=== PATIENT | male | born 2000 | race Caucasian/White ===

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

== ENCOUNTER 2025-01-26 18:24 | Emergency (ER) | payer OTHER, SELFPAY ==
--- NOTE | ~2025-01-26 | XR_ITS ---
HISTORY: FALL COMPARISON: None TECHNIQUE: 3 views of the left elbow were performed FINDINGS: No acute fracture is identified. No elevation of the anterior or posterior fat pads are identified to suggest a supracondylar fracture . Overlying soft tissues are unremarkable. Bone mineralization is age-appropriate. IMPRESSION: No evidence of acute traumatic injury within the left elbow, as detailed above. Reviewed, dictated and finalized at location A. S SUPERINTENDENT IMPRESSION: No evidence of acute traumatic injury within the left elbow, as de tailed above.
--- NOTE | ~2025-01-26 | XR_ITS ---
HISTORY: fall COMPARISON: None TECHNIQUE: 3 views of the left wrist were performed. FINDINGS: No acute fracture is identified. The carpal arcs are intact. Mild radiocarpal joint space narrowing with sclerosis of the distal radius is present. The remaining visualized joint spaces are otherwise preserved. Trace negative ulnar variance is detected. Bone mineralization is unremarkable. No significant soft tissue swelling is noted. No radiopaque foreign body is identified. 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
--- NOTE | ~2025-01-26 | XR_ITS ---
HISTORY: fall COMPARISON: None TECHNIQUE: 3 views of the left ankle were performed FINDINGS: No acute fracture or dislocation. No significant soft tissue swelling. The ankle mortise is preserved. Bone mineralization is age-appropriate. IMPRESSION: No acute abnormality is identified within the left ankle, as detailed above. Reviewed, dictated and finalized at location A. R HEEL PIECE SHAPER IMPRESSION: No acute abnormality is identified within the left ankle, as jose miguel led above.
--- NOTE | ~2025-01-26 | XR_ITS ---
HISTORY: fall COMPARISON: None TECHNIQUE: 4 views of the right knee were performed FINDINGS: No acute or subacute fracture, erosion, lytic or sclerotic lesion. No medial or lateral tibiofemoral joint space narrowing is identified. No suprapatellar joint effusion is identified. The infrapatellar joint space is clear. IMPRESSION: No evidence of acute traumatic injury within the right knee Reviewed, dictated and finalized at location A. IBLE FURNACE TENDER
--- NOTE | ~2025-01-26 | CT_ITS ---
History: Fall PROCEDURE: CT head without contrast. COMPARISON: None 05/02/2021 TECHNIQUE: Axial imaging of the head performed from the skull base to the vertex without IV contrast. Sagittal a nd coronal reformations obtained. DLP: 600 mGy-cm FINDINGS: The ventricles are normal in size, shape and position. There is no mass, mass effect or midline shift. There is no abnormal extra-axial fluid collection or intracranial hemorrhage. Visualized paranasal sinuses are clear. The mastoid air cells are well aerated. No acute displaced fractures within the overlying cranium. Impression: No acute intracranial hemorrhage or suspicious mass effect. Reviewed, dictated and finalized at location A. ING INSTALLER Impression: No acute intracranial hemorrhage or suspicious mass effect.
--- NOTE | ~2025-01-26 | XR_ITS ---
HISTORY: fall COMPARISON: None TECHNIQUE: 2 views of the bilateral hips along with an AP view of the pelvis FINDINGS: No acute fracture or dislocation is identified. The joint spaces are preserved. Normal mineralization. IMPRESSION: No acute fracture or dislocation. Reviewed, dictated and finalized at location A. GER TECHNICAL SALES
--- NOTE | ~2025-01-26 | CT_ITS ---
Clinical indication:Fall COMPARISON:11/05/2020 TECHNIQUE: Multiple contiguous axial images of the chest were performed without the administration of intravenous contrast. FINDINGS: LUNG:The lungs are clear. MEDIASTINUM:Limited evaluation secondary to the lack of intravenous contrast HEART:The heart is of normal size, without pericardial effusion. SOFT TISSUES OF THE CHEST: Unremarkable. BONES OF THE CHEST: No acute compression fracture within the thoracic spine. No acute rib fracture. The sternum is intact. No fracture detected within the bilateral scapula VISUALIZED PORTION OF THE UPPER ABDOMEN: The gallbladder is minimally distended, and otherwise unrema rkable. Stones within the visualized portions of the bilateral kidneys. IMPRESSION: Unremarkable CT examination of the chest, as detailed above. No evidence of acute traumatic injury Reviewed, dictated and finalized at location A. OR SPECIALIST
[2025-01-26 18:26] VITALS: BP 189/94; PULSE 101; RESP 16; TEMP 36.6; O2SAT 100
--- OUTSIDE RECORDS SUMMARY | 2025-01-26 18:43 | XMS_ITS | Clinical Summary ---
Author Organization [facility] [employer] [facility] Address [address] [place] [address] Care Team Providers Care Pit Steward Name Role Phone Che Nolan MD Primary Care Provider [phone] Source Comments [facility],non-owned Affiliates and Associated Physician Practices is amultiple site organization consisting of ambulatory clinics and hospital sitesin [place], [place], [place] and [place]. This disclosure is being madepursuant to the Care Everywhere program and may not contain all information available regarding this patient. Last updated 18.[employer] Allergies No known active allergies Medications * Be aware that medications may not be up to date on this document. Alwaysverify current medications with the patient. Medication Sig Dispensed Refills Start Date End Date Status hydrOXYzine hcl (ATARAX) 25 MG tablet Take 1 tablet by mouth 4 times daily as needed for Itching 20 tablet 02/02/2020 Active Additional Information Patient not taking.Reported on 06/22/2021 OXcarbazepine (TRILEPTAL) 600 MG tablet Take 1 tablet by mouth once daily 30 tablet 3 07/08/2020 Active cloNIDine (CATAPRES) 0.2 MG tablet Take 1 tablet by mouth at bedtime 30 tablet 3 07/08/2020 Active ofloxacin (FLOXIN) 0.3 % otic solution Instill 5 (five) drops into left ear 2 times daily 5 mL 05/01/2021 Active Additional Information Patient not taking.Reported on 06/22/2021 sertraline (ZOLOFT) 100 MG tablet Take 1 tablet by mouth once daily 04/03/2021 Active traZODone (DESYREL) 100 MG tablet Take 150 mg by mouth nightly as needed 04/03/2021 Active ondansetron, disintegrating, (ZOFRAN ODT) 4 MG tablet Take 4 mg by mouth as needed 08/11/2021 Active amoxicillin (AMOXIL) 875 MG tablet Take 875 mg by mouth every 12 hours FOR 10 DAYS 08/11/2021 Active Active Problems Problem Noted Date Diagnosed Date KP (keratosis pilaris) 09/02/2015 BMI (body mass index), pediatric, 95-99% for age 0605/05/2013 Resolved Problems Problem Noted Date Diagnosed Date Resolved Date Elevated blood pressure reading 05/05/2013 04/25/2016 Immunizations Name Administration Dates Next Due DTaP VACCINE IM (6wk-6yrs) 03/11/2007,,2002,07/09,2002 HEP A PEDS 2 DOSE 03/11/2007,05/30/2006 HEP B VACCINE, PED/ADOL 2002,2002, HIB BOOSTER 09/10/2003, 2,2002,05/08 Human Papilloma Virus Abel valent Vaccine 04/24/2016,04/21/2015,05/05/2013 INFLUENZA VACCINE, QUADR. (F LUZONE; FLULAVAL; FLUARIX; AFLURIA QUADRIVALENT; 6MO+), 0.5 ML (IIV4) 09/08/2019,10/02/2018,09/10/2016 Influenza Nasal 08/18/2012 MARLON VACCINE QUAD LAIV4 PF NASAL 08/18/2015,2013 MENINGOCOCCAL CONJUGATE (MCV4P) 07/02/2019,05/05 MMR 03/11/2007,03/11/2003 PNEUMOCOCCAL CONJ, PEDS 03/11/2003,09/08,2002,05/16 POLIO IPV 03/11/2007, 3,2002,05/08 PPD 03/11/2007,03/11/2003 TDAP (7yrs+) 05/05/2013 VARICELLA 03/11/2007,06/10/2003 Social History Tobacco Use Types Packs/Day Years Used Date Smoking Tobacco: Never Smokeless Tobacco: Never Alcohol Use Standard Drinks/Week Comments Not Asked 0 (1 standard drink = 0.6 oz pur e alcohol) PHQ-2 Answer Date Recorded PHQ2 TOTAL SCORE 4 05/04/2021 Sex and Gender Information Value Date Recorded Sex Assigned at Not on file Gender Identity Not on file Sexual Orientation Not on file Last Filed Vital Signs Vital Sign Reading Time Taken Comments Blood Pressure 126/62 04/24/2016 4:42 PM CDT Pulse 70 09/02/2015 4:08 PM CDT Temperature 38.3 C (101 F) 08/15/2021 11:48 AM CDT Respiratory Rate - - Oxygen Saturation - - Inhaled Oxygen Concentration - - Weight 122 kg (269 lb) 06/22/2021 3:35 PM CDT Height 170.2 cm (5' 7 ) 07/02/2019 3:29 PM CDT Body Mass Index - - Plan of Treatment Health Maintenance Due Date Last Done Comments MENINGOCOCCAL (Group B) VACC INE (1 of 2 - Standard) 2018 HEPATITIS C SCREENING 03/03/2020 DTAP/TDAP/TD VACCINES (7 - T d or Tdap) 05/05/2023 05/05/2013, 03/11/2007, 09/10/2003, Additional history exists COVID-19 VACCINE (1 - 2023-2 5 season) 2024 INFLUENZA VACCINE (#1) 2024 9, 10/02/2018, 09/10/2016, Additional history exists DEPRESSION SCREENING 11/25/2024 ZOSTER VACCINE (1 of 2) 2052 HEPATITIS B VACCINE Completed 2002, 2002, 2002 PNEUMOCOCCAL VACCINE Completed 03/11/2003, 2002, 2002, Additional history exists HIB VACCINE Completed 09/10/2003, 08/25, 2002, Additional history exists HPV VACCINE Completed 04/24/2016, 03/26, 05/05/2013 MENINGOCOCCAL VACCINE Completed 07/02/2019, 013 HIV SCREENING Completed 04/05/2021 Goals Goal Patient Goal Type Associated Problems Recent Progress Patient-Stated? Author Exercise 3X per week (30 min per time) Exercise On track( 11:19 AM CDT) No Che Nolan MD Note: Caring for Your Overweight Child Get Moving: It is recommended that children and teens get physical activity for at least 1 hour per day on most (or better yet, all) days of the week. That may sound like a lot, especially if your child is not getting any physical activity now. But physical activity means more than exercise. It can mean playing games in the backyard, or washing the car. It can mean picking up leaves, or walking the dog. Add the healthy habit of physical activity to your family s schedule. When children take off weight through dieting alone, 80 percent of the loss is from fatty tissue and 20 percent is from muscle. Adding weight-resistance training to an exercise routine preserves the muscle tissue. Virtually every ounce dropped comes from fat. Once an adolescent meets his goal, regular exercise is essential for maintaining the desired weight. Where can I go for more information? [place] [employer] ( ) www.aap.org HealthyChildren.org www.healthychildren.org U.S. Department of Health and Human Services www.hhs.gov Website and free downloadable sharon for smartphones: http://www.Beyond Oblivion/ Use safety retraint in car Lifestyle On track( 11:19 AM CDT) No Jasmina Massey RN Procedures Procedure Name Priority Date/Time Associated Diagnosis Comments HIV-1 HIV-2 ANTIBODY + HIV P24 AG PANEL Routine 04/05/2021 9:59 AM CDT Screen for STD (sexually transmitted disease) from Last 3 Months or Most Recently Relevant to Health Maintenance Results * HIV-1 HIV-2 ANTIBODY + HIV P24 AG PANEL (04/05/2021 9:59 AM CDT) Pathologist [facility] HIV Screen 4th Generation w Reflex NON-REACT PIA NON-REACT PIA [facility] Comment: HIV-1 antigen and HIV-1/HIV-2 antibodies were not detected. There is no laboratory evidence of HIV infection. PLEASE NOTE: This information has been disclosed to you from records whose confidentiality may be protected by state law. If your state requires such protection, then the state law prohibits you from making any further disclosure of the information without the specific written consent of the person to whom it pertains, or as otherwise permitted by law. A general authorization for the release of medical or other information is NOT sufficient for this purpose. For additional information please refer to http://education.Realitycheck/faq/FBV401 (This link is being provided for informational/ educational purposes only.) The performance of this assay has not been clinically validated in patients less than 2 years old. Test Performed at: [facility] [id number] [place] [address] SENTHIL SALDIVAR DO,MPH Blood BLOOD SPECIMEN / Unknown 04/05/2021 9:59 AM CDT 04/05/2021 10:01 AM CDT Che Nolan MD LAB - CHEMISTRY [facility] Organization Address City/State/ZIP Co ks Phone Number [facility] [address] [place] [address] from Last 3 Months or Most Recently Relevant to Health Maintenance Care Teams Pit Steward Relationship Specialty Start Date End Date Che Nolan MD PCP - General Pediatrics 10/25/11
--- OUTSIDE RECORDS SUMMARY | 2025-01-26 18:43 | XMS_ITS | Referral Summary ---
Author Organization [facility] [employer] Address [address] [place] [address] Care Team Providers Care Dry Box Operator Name Role Phone Che Nolan MD Primary Care Provider [phone] Source Comments [facility] [employer],non-owned Affiliates and Associated Physician Practices is amultiple site organization consisting of ambulatory clinics and hospital sitesin [place], [place], [place] and [place]. This disclosure is being madepursuant to the Care Everywhere program and may not contain all information available regarding this patient. Last updated 18.[employer] Allergies No known active allergies Medications * [...] Mass Index - - Plan of Treatment Not on file Goals Goal Patient Goal Type Associated Problems Recent Progress Patient-Stated? Author Exercise 3X per week (30 min per time) Exercise On track( 021 11:19 AM CDT) No Che Nolan MD [...] Where can I go for more information? [place] [employer] ( ) www.aap.org HealthyChildren.org www.healthychildren.org U.S. Department of Health and Human Services www.hhs.gov Website and free downloadable sharon for smartphones: http://www.Vestor/ Use safety retraint in car Lifestyle On track( 021 11:19 AM CDT) Jasmina Montoya RN Procedures Procedure Name Priority Date/Time Associated Diagnosis Comments HIV-1 HIV-2 ANTIBODY + HIV P24 AG PANEL Routine 04/05/2021 9:59 AM CDT Screen for STD (sexually transmitted disease) from Last 3 Months or Most Recently Relevant to Health Maintenance Results * HIV-1 HIV-2 ANTIBODY + HIV P24 AG PANEL (04/05/2021 9:59 AM CDT) HIV Screen 4th Generation w Reflex NON-REACT PIA NON-REACT PIA [facility] Comment: HIV-1 antigen and HIV-1/HIV-2 antibodies were [...] purpose. For additional information please refer to http://education.OGPlanet.Advanced Telemetry/faq/NFF683 (This link is being provided for informational/ educational purposes only.) The performance of this assay has not been clinically validated in patients less than 2 years old. Test Performed at: [facility] [id number] [place] [address] SENTHIL SALDIVAR DO,MPH Blood BLOOD SPECIMEN / Unknown 04/05/2021 9:59 AM CDT 04/05/2021 10:01 AM CDT Che Nolan MD LAB - CHEMISTRY [facility] [address] [place] [address] from Last 3 Months or Most Recently Relevant to Health Maintenance Care Teams Dry Box Operator Relationship Specialty Start Date End Date Che Nolan MD PCP - General Pediatrics 10/25/11
--- OUTSIDE RECORDS SUMMARY | 2025-01-26 18:43 | XMS_ITS | Data Portability ---
Author Organization [place] [facility], Main Office Address [address] [place] [address] Assessment Encounter Date Assessment Date Assessment LastModified by Organization Details LastModified Time 09/14/2024 09/14/2024 04/01/2024: see case Lipids/VIT D [email or web address] Not available 09/13/2024 12:59:40 Plan of Treatment Reminders Order Date Submit Date Provider Last Modified By Organization Details Last Modified Time Details Appointments None recorded. Lab CBC w/ auto diff 2023 [facility], [address], [address], 11:35:42 lipid panel, serum 2023 [facility], [address], [address], 11:35:43 CMP, serum or plasma 2023 [facility], [address], [address], 11:35:42 TSH, serum or plasma 2023 [facility], [address], [address], 11:35:41 vitamin D, 25-hydroxy, total, serum [email or web address] [place] [address] (Lab), [address] [place], [address], 4 11:35:46 CMP, serum or plasma 2023 024 [email or web address] [facility], [address] , [place], [address], 12:52:10 CBC w/ auto diff 2023 024 [email or web address] 6 [facility], [address] [place] [address], [address], 12:52:10 TSH, serum or plasma 2023 024 [email or web address] 6 [facility], [address], [address], 12:52:10 lipid panel, serum 2023 024 [email or web address] 6 [facility], [address], [address], 12:52:11 vitamin D, 25-hydroxy, total, serum 2023 024 [facility] (Lab), [address] [place], [address], 4 13:01:37 CMP, serum or plasma 2022 023 [email or web address] 6 [facility], [address], [address], 16:54:00 CBC w/ auto diff 2022 023 [email or web address] 6 [facility], [address] [facility] [place], [address], 4 16:54:01 TSH, serum or plasma 2022 023 [email or web address] 6 [facility], [address], [address], 4 16:54:01 lipid panel, serum 2022 023 [email or web address] 6 [facility], [address] [facility] [address], [address], 4 16:54:01 vitamin D, 25-hydroxy, total, serum 2022 023 [email or web address] 6 [facility] ([facility]), [address] [facility], [place], [address], 4 16:54:00 Referral cloth weigher referral - Please call patient to schedule. 2023 024 [email or web address] 6 Brock Samayoa DPM, [address] [facility], [address], [place], [address], 5 09:28:[address] referral - Please call patient to schedule. 2023 024 [email or web address] Luz Mckeon [facility], [address] [facility], [address], [place], [address], 4 12:58:42 EGD referral 2023 024 [email or web address] 6 Kyara Hendrickson MD, [address] [facility], [address], [place], [address], 5 09:27:36 cloth weigher referral 2023 024 [email or web address] 6 Brock Samayoa DPM, [address], [address], [place], [address], 4 12:53:[address] referral 2023 024 [email or web address] 6 Jovanni Raoms MD, [address] [place], [address], 4 09:21:25 EGD referral 2023 024 [email or web address] Anna Hendrickson MD, [address] [facility], [facility] [address], [place], [address], 4 12:53:01 cloth weigher referral 2022 023 [email or web address] 6 Brock Samayoa DPM, [address] [facility], [address], [place], [address], 4 09:21:[address] referral 2022 023 [email or web address] Anna Raoms MD, [address] [place], [address], 4 09:35:51 EGD referral 2022 023 [email or web address] Anna Hendrickson MD, [address] [facility], [facility] [address], [place], [address], 4 09:21:30 Procedures None recorded. Surgeries None recorded. Imaging MRI, brain, w/o contrast - Please call patient to schedule. 2023 024 [facility], [address] Lucia Garcia, [address], [place], [address], 4 14:33:34 MRI, brain, w/o contrast 2023 024 [email or web address] 6 [facility], [address]22 [address] Garcia, [address], [place], [address], 4 12:52:37 MRI, brain, w/o contrast [email or web address] [place] [address] 2022 Lucia Garcia, [place] [address], [place], [address], 4 08:40:31 Medication Orders Crestor 40 mg tablet 2023 024 [facility], [address] [place], [address], 4 11:35:31 trazodone 100 mg tablet 2023 024 [facility], [address] [place], [address], 4 11:35:27 omeprazole 20 mg capsule,del ayed release 2023 024 [facility], [address] [place], [place], [id number], 4 11:35:26 omeprazole 20 mg capsule,del ayed release 2023 024 [facility] #96951, [address], [place], [id number], 4 11:29:01 trazodone 50 mg tablet [address] [facility]18, [address] [place], [id number], 4 11:28:55 omeprazole 20 mg capsule,del ayed release 2022 023 [facility] #89892, [address], [place], [id number], 3 13:08:45 trazodone 50 mg tablet [address] [facility]17884, [address], [place], [id number], 11:28:55 Patient TargetsNo targets recorded. Patient InstructionsNo instructions recorded. Reason for Referral EGD Referral for Gastroesoph ageal reflux disease without esophagitis Referring Physician: Georgette Calles Internal Medicine, Encounter Date: 08/26/2023 Signaling Design Engineer Referral for Abby a pedis Referring Physician: Georgette Calles Internal Medicine, Encounter Date: 08/26/2023 Retort Press Operator Referral for O bstructive sleep apnea syndrome Referring Physician: Georgette Calles Internal Medicine, Encounter Date: 08/26/2023 EGD Referral for Gastroesoph ageal reflux disease without esophagitis Referring Physician: Yissel Arenas Medicine, Encounter Date: 03/09/2024 Signaling Design Engineer Referral for Abby a pedis Referring Physician: Georgette Calles Internal Medicine, Encounter Date: 03/09/2024 Retort Press Operator Referral for O bstructive sleep apnea syndrome Referring Physician: Georgette Calles Internal Medicine, Encounter Date: 03/09/2024 EGD Referral for Gastroesoph ageal reflux disease without esophagitis Referring Physician: Yissel Arenas Medicine, Encounter Date: 09/14/2024 Signaling Design Engineer Referral for Abby a pedis Please call patient to schedule. Referring Physician: Yissel Arenas Medicine, Encounter Date: 09/14/2024 Retort Press Operator Referral for O bstructive sleep apnea syndrome Please call patient to schedule. Referring Physician: Yissel Arenas Medicine, Encounter Date: 09/14/2024 Results Created Date Observation Date Name Description Value Unit Range Abnormal Flag Note LastModifiedBy Organization Detail LastModifiedTime Result Notes None recorded. Problems Name Problem SNOMED Code Status Onset Date Resolution Date Notes Provider Name and Address Organization Details Recorded Time Vitamin D deficiency 63517281 Active 2022 Georgette carrera MD [address], [address], [place], [address], [employer] [facility] [employer] [facility] 3 12:10:40 Persistent insomnia 410966532 Active 2022 Georgette carrera MD [address], [address], [place], [address], [employer] [facility] 3 12:51:45 Gastroesophage al reflux disease without esophagitis 313450775 Active 2022 Georgette carrera MD [address], [address], [place], [address], [employer] [facility] 3 13:06:17 Tinea pedis 0030520 Active 2022 Georgette carrera MD [address], [address], [place], [address], [employer] 3 13:07:06 Obstructive sleep apnea syndrome 72399856 Active 2022 Georgette carrera MD [address], [address], [place], [address], [employer] [facility] 3 13:07:39 Migraine 90410163 Active 2022 Georgette carrera MD [address], [address], [place], [address], [employer] [facility] 3 13:08:18 Obesity 229032598 Active 2022 Georgette carrera MD [address], [address], [place], [address], [employer] [facility] [employer] [facility] 3 14:01:58 Hyperlipidemia 94236526 Active 2023 Shahla Arias MA null, [place] [employer] [facility] [employer] [facility] 4 16:03:48 Problem Notes None recorded. Procedures Surgical History Date Name Laterality Status Provider Name and Address Organization Details Recorded Time Ear Tubes completed HEYDI Stallings [facility] [employer] [facility] 08/26/2023 12:46:02 tonsilectomy /adenoids completed HEYDI Stallings [facility] [employer] [facility] 08/26/2023 12:46:07 Imaging Results None recorded. Procedure Notes None recorded. Medical Equipment None Reported. Allergies No known drug allergies Medications Name Sig Start Date Stop Date Status Note LastModified by Organization Details LastModified Time trazodone 50 mg tablet TAKE 1 TABLET BY MOUTH ONCE DAILY NEEDED FOR 30 DAYS. NO ALCOHOL, DRIVING OR WITH SEDATING MEDICATIO N. active Not Available Not Available No t Available trazodone 100 mg tablet TAKE 1 TABLET BY MOUTH ONCE DAILY. NO ALCOHOL, DRIVING OR WITH SEDATING MEDICATIO NS active Not Available Not Available No t Available omeprazole 20 mg capsule,del ayed release Take 1 capsule every day by oral route as needed for 90 days. 2023 active Not Available Not Available Not Avai lable mupirocin 2 % topical ointment APPLY OINTMENT TOPICALLY 4 TIMES DAILY active Not Available Not Available No t Available ergocalcife rol (vitamin D2) 1,250 mcg (50,000 unit) capsule TAKE 1 CAPSULE BY MOUTH ONCE A WEEK active Not Available Not Available No t Available amoxicillin 875 mg-potassiu m clavulanate 125 mg tablet TAKE 1 TABLET BY MOUTH TWICE DAILY FOR 5 DAYS 09/14 completed Not Available Not Available Not Available rosuvastati n 40 mg tablet TAKE 1 TABLET BY MOUTH ONCE DAILY active Not Available Not Available No t Available melatonin 10 mg tablet Take 1 tablet every day by oral route at bedtime. 03/09 completed Not Available Not Available Not Available Vitals Date Recorded Body height Body mass index (BMI) Body weight Body temperature Heart rate Systolic blood pressure Diastolic blood pressure Provider Name and Address Organization Details Last Updated DateTime 3 170.18 cm 51.7 kg/m2 486658. 48 g 97.4 [degF] 72 /min 124 mm[Hg] 82 mm[Hg] HEYDI Stallings [facility] [employer] [facility] 3 12:49:24 Date Recorded Body height Body mass index (BMI) Body weight Body temperature Heart rate Systolic blood pressure Diastolic blood pressure Provider Name and Address Organization Details Last Updated DateTime 4 170.18 cm 52.2 kg/m2 476157. 26 g 97.7 [degF] 90 /min 120 mm[Hg] 66 mm[Hg] HEYDI Stallings [facility] [employer] [facility] 4 10:16:42 Date Recorded Body height Body mass index (BMI) Body weight Body temperature Heart rate Systolic blood pressure Diastolic blood pressure Provider Name and Address Organization Details Last Updated DateTime 4 170.18 cm 56.1 kg/m2 583204. 07 g 97.6 [degF] 78 /min 126 mm[Hg] 80 mm[Hg] HEYDI Stallings [employer] [facility] [employer] [facility] 4 10:11:47 Social History Question Answer Notes LastModified by Organization Details LastModified Time Tobacco Smoking Status Current Some Day Smoker social smoker only HEYDI Stallings [facility] 08/26/2023 12:44:02 Do You Have An Advance Directive? No Information not available 08/26/2023 What Is Your Level Of Alcohol Consumption? Occasional Information not available 08/26/2023 What Is Your Level Of Caffeine Consumption? Heavy Information not available 08/26/2023 In The 14 Days Before Symptom Onset, Have You Had Close Contact With A Laboratory-confi rmed COVID-19 While That Case Was Ill? No Information not available 08/26/2023 In The 14 Days Before Symptom Onset, Have You Had Close Contact With A Person Who Is Under Investigation For COVID-19 While That Person Was Ill? No Information not available 08/26/2023 Are You Currently Employed? Yes Information not available 08/26/2023 What Type Of Diet Are You Following? REGULAR Information not available 08/26/2023 Which Illicit Or Recreational Drugs Have You Used? Marijuana Information not available 08/26/2023 Do You Or Have You Ever Used E-cigarettes Or Vape? Current User Of Electronic Cigarettes Vape Information not available 09/14/2024 What Is The Highest Grade Or Level Of School You Have Completed Or The Highest Degree You Have Received? [id number] Information not available 08/26/2023 What Is Your Occupation? [employer] Information not available 08/26/2023 What Is The Fluoride Status Of Your Home? Unknown Information not available 08/26/2023 Are There Any Guns Present In Your Home? Yes Information not available 08/26/2023 Where [facility] You [facility]? [facility] Information not available 08/26/2023 Do You Have A Medical Power Of Clinical Safety Specialist? No Information not available 08/26/2023 What Was The Date Of Your Most Recent Tobacco Screening? 09/14/2024 Information not available 09/14/2024 Do You Have Any Pets? Yes Information not available 08/26/2023 What Is Your Relationship Status? Single Information not available 08/26/2023 Do You Use Your Seat Belt Or Car Seat Routinely? Yes Information not available 08/26/2023 Do You Have Smoke And Carbon Monoxide Detectors In Your Home? Yes Information not available 08/26/2023 Are You Passively Exposed To Smoke? Yes Information not available 08/26/2023 Do You Or Have You Ever Used Smokeless Tobacco? Never Used Smokeless Tobacco Information not available 09/14/2024 Are There Any Smokers In Your House? Yes Information not available 08/26/2023 Do You Feel Stressed (tense, Restless, Nervous, Or Anxious, Or Unable To Sleep At Night)? [id number] Information not available 08/26/2023 Do You Use Any Illicit Or Recreational Drugs? Yes Information not available 08/26/2023 Have You Recently Traveled Abroad? No Information not available 08/26/2023 Do You Or Have You Ever Used Any Other Forms Of Tobacco Or Nicotine? Yes Information not available 09/14/2024 Sex: Male Functional Status Question Answer Note LastModified by Organizat ion Details LastModified Time What is your exercise level? Occasional stay active at work Information not available 08/26/2023 Mental Status None recorded. Family History Relationship Description Onset Age of this Age Resolved Age Notes LastModified by Organization Details LastModified Time Mother Irritable bowel syndrome Not available 2022 12:40:30 Father Myocardial infarction 34 Not available 08/26 12:40:47 Maternal Grandfather Steatosis of liver Not available 2022 12:41:13 Maternal Grandfather Hyperlipidem ia Not available 2022 12:41:29 Maternal Grandmother Prediabetes Not available 08/26/2023 12:41:52 Maternal Grandmother Chronic obstructive pulmonary disease Not available 2022 12:41:59 Paternal Uncle Sleep apnea Not available 12/2022 12:47:50 Medical History Condition Response NERVE DISEASE N BLINDNESS N RHEUMATIC FEVER N KIDNEY STONES N BLADDER PROBLEMS N MRSA N OTHER # 1 Y POLIO N LUNG DISEASE/DISORDER N HISTORY OF DRUG ABUSE N RADIATION / CHEMOTHERAPY N COPD N Other # 2 N BLOOD DISEASES N EAR OR HEARING PROBLEMS N MUMPS N SHINGLES N BOWEL PROBLEMS N DEPRESSION (INCLUDING POST ) N FAILED BACK SYNDROME N STROKE/TIA N ULCERS N BENIGN PROSTATIC HYPERPLASIA N MEASLES N HYPOTENSION N MYOCARDIAL INFARCTION N OBESITY N GERD/NAUSEA N ANEURYSM N URINARY/BLADDER/KIDNEY PROBLEMS N CORONARY ARTERY DISEASE (CAD) N Do you have Advance directive? N ADDICTION CONCERNS N ENDOMETRIOSIS N Impotence N USE OF BLOOD THINNERS N SKIN PROBLEMS N GASTROINTESTINAL DISORDER N PERIPHERAL VASCULAR DISEASE N MUSCLE,JOINT OR BONE PROBLEMS N GASTROINTESTINAL BLEEDING N BLOOD CLOTS N ASTHMA N Abdominal Pain N CATARACTS N ARTERIAL INSUFFICIENCY N ERECTILE DYSFUNCTION N VARICOSITIES N GI PROBLEMS N Low Testosterone N INFERTILITY N AIDS/HIV N CHEMOTHERAPY / RADIATION N LIVER DISEASE N MALE HYPOGONADISM N HYPERTENSION N Deficiency N TOURETTE'S N ANXIETY DISORDER N BLOOD TRANSFUSION N ANEMIA/BLOOD DISORDER N CHRONIC EAR INFECTIONS N TUBERCULOSIS N GLAUCOMA N FOOT PROBLEM N DIVERTICULITIS N CHICKENPOX N SLEEP APNEA N BACK INJECTIONS N ALLERGIES/HAYFEVER N INFECTIOUS DISEASE N HEART ARRHYTHMIA N PROSTATE N ESRD N INSOMNIA Y HIGH CHOLESTEROL / HYPERLIPIDEMIA N HYPERTHYROIDISM N EYE PROBLEMS N PVD N EDEMA N CHRONIC PAIN SYNDROME N HYPOTHYROIDISM N CONSTIPATION N CAROTID BLOCKAGE N BACK / NECK PROBLEMS N ATHEROSCLEROSIS N BREAST PROBLEMS N DIALYSIS N POLYCYSTIC OVARIES N ECZEMA N OSTEOPOROSIS N ARTHRITIS N APPENDICITIS N DIABETES, TYPE N BAD TEETH N VON WILLIBRAND'S DISEASE N ENT N HEARTBURN / REFLUX N GI N AUTISM SPECTRUM DISORDER (ASD) N POST LAMINECTOMY SYNDROME N HEPATITIS / LIVER DISEASE N GOUT N SLEEP DISORDER N ALZHEIMER'S DISEASE N Brain Problems N HERPES N DEMENTIA N HEADACHES/MIGRAINES N SEIZURES/EPILEPSY N VASCULAR DISEASE N PACEMAKER N DIZZINESS N HEART DISEASE/HEART PROBLEMS N KIDNEY DISEASE N MULTIPLE SCLEROSIS N NEUROPSYCHOLOGICAL N CARDIAC ARRHYTHMIA N CANCER: SPECIFY N ATRIAL FIBRILLATION N Gall Stones N PULMONARY EMBOLISM N AUTOIMMUNE DISEASE N Immunizations Vaccine Type Date Status Note Provider Nam e and Address Organization Details Recorded Time Hib, unspecified formulation 2 completed Aline Lindsay, RMA null, [place] [facility] 09/14/2024 11:25:50 Hib, unspecified formulation 2 completed Aline Lindsay, RMA null, [place] [facility] 09/14/2024 11:25:50 Hib, unspecified formulation 2 completed Aline Glenham, RMA null, [place] [facility] 09/14/2024 11:25:51 Hib, unspecified formulation 3 completed Aline Lindsay, RMA null, [facility] 09/14/2024 11:25:51 IPV 7 completed Aline Lindsay, RMA null, [place] [facility] 09/14/2024 11:25:51 IPV 2 completed Aline Bestham, RMA null, [facility] 09/14/2024 11:25:51 IPV 3 completed Aline Bestham, RMA null, [facility] 09/14/2024 11:25:51 IPV 2 completed Aline Montoya RMA null, [facility] 09/14/2024 11:25:51 Influenza, live, trivalent, intranasal 2 completed Aline Montoya RMA null, [place] [facility] 09/14/2024 11:25:51 MMR 3 completed Aline Montyoa RMA null, [place] [facility] 09/14/2024 11:25:51 MMR 3 completed Aline Lidnsay, RMA null, [place] [facility] 09/14/2024 11:25:51 MMRV 7 completed Aline Lindsay, RMA null, [place] [facility] 09/14/2024 11:25:51 COVID-19, mRNA, LNP-S, PF, 30 mcg/0.3 mL dose 1 completed Aline Glenham, RMA null, [place] [facility] 09/14/2024 11:25:51 COVID-19, mRNA, LNP-S, PF, 30 mcg/0.3 mL dose 1 completed Aline Glenham, RMA null, [place] [facility] 09/14/2024 11:25:51 pneumococcal conjugate PCV 7 3 completed Aline Montoya RMA null, [place] [facility] 09/14/2024 11:25:51 pneumococcal conjugate PCV 7 2 completed Aline Lindsay, RMA null, [place] [facility] 09/14/2024 11:25:51 pneumococcal conjugate PCV 7 2 completed Aline Glenham, RMA null, [place] [facility] 09/14/2024 11:25:51 pneumococcal conjugate PCV 7 2 completed Aline Montoya RMA null, [place] [facility] 09/14/2024 11:25:51 influenza, unspecified formulation 7 completed Aline Lindsay, RMA null, [place] [facility] 09/14/2024 11:25:51 influenza, unspecified formulation 6 completed Aline Lindsay, RMA null, [place] [facility] 09/14/2024 11:25:51 Tdap 3 completed Aline Montoya RMA null, [place] [facility] 09/14/2024 11:25:51 varicella 3 completed Aline Montoya RMA null, [place] [facility] 09/14/2024 11:25:51 influenza, split (incl. purified surface antigen) 8 completed Aline Montoya RMA null, [facility] 09/14/2024 11:25:51 HPV, quadrivalent 5 completed Aline Montoya RMA null, [facility] 09/14/2024 11:25:51 HPV, quadrivalent 6 completed Aline Lindsay RMA null, [facility] 09/14/2024 11:25:51 HPV, quadrivalent 3 completed Aline Montoya RMA null, [facility] 09/14/2024 11:25:51 Hep B, adolescent or pediatric 3 completed Aline Montoya RMA null, [facility] 09/14/2024 11:25:51 Hep B, adolescent or pediatric 2 completed Aline Montoya RMA null, [facility] 09/14/2024 11:25:51 Hep B, adolescent or pediatric 2 completed Aline Montoya RMA null, [facility] 09/14/2024 11:25:51 Hep A, pediatric, unspecified formulation 7 completed Aline Montoya RMA null, [facility] 09/14/2024 11:25:51 Hep A, pediatric, unspecified formulation 6 completed Aline Montoya RMA null, [facility] 09/14/2024 11:25:51 meningococcal MCV4P 3 completed Aline Montoya RMA null, [facility] 09/14/2024 11:25:51 meningococcal MCV4P 9 completed Aline Montoya RMA null, [facility] 09/14/2024 11:25:51 DTaP 7 completed Aline Montoya RMA null, [facility] 09/14/2024 11:25:51 DTaP 2 completed Aline Lindsay, RMA null, [facility] 09/14/2024 11:25:51 DTaP 2 completed Aline Glenham, RMA null, [facility] 09/14/2024 11:25:51 DTaP 2 completed Aline Lindsay, RMA null, [facility] 09/14/2024 11:25:51 DTaP 3 completed Aline Glenham, RMA null, [facility] 09/14/2024 11:25:51 Influenza, live, quadrivalent, intranasal 5 completed Aline Glenham, RMA null, [facility] 09/14/2024 11:25:51 Influenza, live, quadrivalent, intranasal 4 completed Aline Glenham, RMA null, [facility] 09/14/2024 11:25:51 Influenza, split virus, quadrivalent, PF 9 completed Aline Glenham, RMA null, [facility] 09/14/2024 11:25:51 Influenza, split virus, quadrivalent, PF 6 completed Aline Lindsay, RMA null, [facility] 09/14/2024 11:25:51 Influenza, split virus, quadrivalent, PF 8 completed Aline Lindsay, RMA null, [facility] 09/14/2024 11:25:51 Influenza, split virus, trivalent, PF 4 completed Georgette Calles MD [address], [address], [facility] 09/14/2024 14:24:21 Past Encounters Encounter ID Performer Location Encounter Start Date Encounter Closed Date Diagnosis/Indication Diagnosis SNOMED-CT Code Diagnosis ICD10 Code Diagnosis Note [id number] Georgette gillespie MD S[facility] Internal Med Dana maharaj [address] [facility] [facility] [address] [place] [address] 08/26/2023 12:08:54 08/26/2023 13:10:11 Screening - NAD 973946382 Z13.9 Get yearly flu shot, states will do this next weekGet Tdap if not done, states that he will do this next weekCan do COVID 19 vaccine RTC in 3 months, do labs, ER if worse, he did verbalize his understand ing of the above Vitamin D deficiency 347 [address]205 E55.9 Persistent insomnia 1918 G47.09 Used to be on trazodone, will renew Long-term drug therapy 595842356 Z79.899 Gastroesop hageal reflux disease without esophagitis 324964074 K21.9 Get a referral for an EGD, start on PPI, take as needed, all side effects explained to him Tinea pedis [id number] B35. 3 Will get a referral to podiatry Obstructiv e sleep apnea syndrome 78788089 G47.33 Get a referral to pulmonaryM ay need a sleep study done Migraine [id number] G43.90 9 History of migraines, feels that his insomnia may be making it worse, none today, will get a MRI done Obesity 349934100 E66.9 More diet and exercise [id number] Georgette gillespie MD [facility] [place]araj [address] [facility] , [place] [address] 03/09/2024 10:05:32 03/09/2024 10:44:30 Screening - NAD [id number] Z13.9 Get yearly flu shotGet Tdap if not doneCan do COVID 19 vaccine RTC in 6 months, do labs, ER if worse, he did verbalize his understand ing of the above Vitamin D deficiency 347 47522 E55.9 Persistent insomnia 1918003 G47.09 Used to be on trazodone, will renew again 03/09/2024 , he has done very well on this Long-term drug therapy [id number] Z79.899 Gastroesop hageal reflux disease without esophagitis 114213187 K21.9 Get a referral for an EGD, start on PPI, take as needed, all side effects explained to him Tinea pedis 9955145 B35. 3 Will get a referral to podiatry Obstructiv e sleep apnea syndrome 04787501 G47.33 Get a referral to pulmonaryM ay need a sleep study done Migraine 37549446 G43.90 9 History of migraines, feels that his insomnia may be making it worse, none today, will get a MRI done Obesity 704561094 E66.9 More diet and exerciseDe nies any MCT, or MEN2 or pancreatic or parathyroi d issues, can do GLP-1, he will find out if his insurance will pay for this [id number] Georgette gillespie MD [facility] [place] maharaj [address] [facility] [address] , [place] [address] 09/14/2024 09:56:55 09/14/2024 11:36:41 Screening - NAD 310906934 Z13.9 Get yearly flu shotGet Tdap if not doneCan do COVID 19 vaccine RTC in 3 months, he is planning on moving to [place], do labs, ER if worse, he and his fiancee Tariq did verbalize his understand ing of the above Vitamin D deficiency 347 36444 E55.9 Persistent insomnia 1919 46916 G47.09 Used to be on trazodone 50mg daily, states that he would like to get a higher dose, will renew at 100mg daily PRN, will renew 09/14/2024 , he is aware of all the side effects Gastroesop hageal reflux disease without esophagitis 012447509 K21.9 Get a referral for an EGD, referred 09/14/2024 , start on PPI, take as needed, all side effects explained to him Tinea pedis 1429077 B35. 3 Will get a referral to podiatry Obstructiv e sleep apnea syndrome 58044195 G47.33 Get a referral to pulmonaryM ay need a sleep study done Migraine 79735472 G43.90 9 History of migraines, feels that his insomnia may be making it worse, none today, will get a MRI done, referred again, 09/14/2024 Obesity 283503848 E66.9 More diet and exerciseDe nies any MCT, or MEN2 or pancreatic or parathyroi d issues, can do GLP-1, he will find out if his insurance will pay for this Hyperlipidemia 93985052 E78.5 On crestor 40mg daily, does well, more diet and exercise and repeat the labs Administra tion of influenza vaccine [id number] Z23 Health Concerns Section Related Observation LastModified by Organization Detai ls LastModified Time None Recorded Concern Status LastModified by Organization Details LastModified Time None Recorded Advance Directives Directive N: Payers Encounter Date Sequence Insurance Name Policy Number Policy Matias Covered Member ID Matias Member ID Guarantor Name 08/26/2023 1 [employer] - MULTIPLAN (INDEMNITY) [facility]bey [facility] [id number] [facility] 03/09/2024 1 [employer] - MULTIPLAN (INDEMNITY) Obey Kaleb [id number] [facility] 09/14/2024 1 [employer] - [employer] - MULTIPLAN (PPO) Tariq Alexey [id number] Obey Manuel Notes Date Note Type Note Provider Name and Address Organization Details Recorded Time 08/26/2023 text/html OV 08/26/2023:He re to establish care Past Hx:GERDInsomnia?OS A Reviewed social family and surgical history Here to discuss above and get labs, he is wanting to discuss the use of trazodone Georgette Calles MD [address], [place], [address], [employer] 08/26/2023 14:07:53 03/09/2024 text/html OV 08/26/2023:He re to establish care Past Hx:GERDInsomnia?OS A Reviewed social family and surgical historyHere to discuss above and get labs, he is wanting to discuss the use of trazodone OV 03/09/2024: Here for his wellness visit, he has missed is last apt, he is doing very well, he states that he has not done any labs as he had a co-pay and could not afford them, willing to take the paperwork again today, he is here with his fiancee Georgette Calles MD [address], [place], [address], [employer] 03/09/2024 10:45:07 09/14/2024 text/html OV 08/26/2023:He re to establish care Past Hx:GERDInsomnia?OS A Reviewed social family and surgical historyHere to discuss above and get labs, he is wanting to discuss the use of trazodone OV 03/09/2024: Here for his wellness visit, he has missed is last apt, he is doing very well, he states that he has not done any labs as he had a co-pay and could not afford them, willing to take the paperwork again today, he is here with his cyrus OV 09/14/2024: Here for his f/u apt, he is doing well today, he does want to increase the dose of the trazodone, he has to yet do the labs, here with his fiancee Georgette Calels MD [address] [place] [address], [facility] [address], [place], [address], [place] [facility] 09/14/2024 14:26:40
--- OUTSIDE RECORDS SUMMARY | 2025-01-26 18:43 | XMS_ITS | Patient Health Summary ---
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 This disclosure is being madepursuant to the Care Everywhere program and may not contain all information available regarding this patient. Last updated 18.[facility] Allergies No known active allergies Medications * Be aware that medications may not be up to date on this document. Alwaysverify current medications with the patient. * hydrOXYzine hcl (ATARAX) 25 MG tablet(Started 02/02/2020) Take 1 tablet by mouth 4 times daily as needed for Itching * OXcarbazepine (TRILEPTAL) 600 MG tablet(Started 07/08/2020) Take 1 tablet by mouth once daily 3 refills by 07/08/2021 * cloNIDine (CATAPRES) 0.2 MG tablet(Started 07/08/2020) Take 1 tablet by mouth at bedtime 3 refills by 07/08/2021 * ofloxacin (FLOXIN) 0.3 % otic solution(Started 05/01/2021) Instill 5 (five) drops into left ear 2 times daily * sertraline (ZOLOFT) 100 MG tablet(Started 04/03/2021) Take 1 tablet by mouth once daily * traZODone (DESYREL) 100 MG tablet(Started 04/03/2021) Take 150 mg by mouth nightly as needed * ondansetron, disintegrating, (ZOFRAN ODT) 4 MG tablet(Started 08/11/2021) Take 4 mg by mouth as needed * amoxicillin (AMOXIL) 875 MG tablet(Started 08/11/2021) Take 875 mg by mouth every 12 hours FOR 10 DAYS Active Problems Problem Noted Date Diagnosed Date KP (keratosis pilaris) 09/02/2015 BMI (body mass index), pediatric, 95-99% for age 0605/05/2013 Resolved Problems Problem Noted Date Diagnosed Date Resolved Date Elevated blood pressure reading 05/05/2013 04/25/2016 Immunizations * DTaP VACCINE IM (6wk-6yrs)(Given 03/11/2007, 09/10/2003, 2002, 2002, 2002) * HEP A PEDS 2 DOSE(Given 03/11/2007, 05/30/2006) * HEP B VACCINE, PED/ADOL(Given 2002, 2002, 2002) * HIB BOOSTER(Given 09/10/2003, 2002, 2002, 2002) * Human Papilloma Virus Quadrivalent Vaccine(Given 04/24/2016, 04/21/2015, 05/05/2013) * INFLUENZA VACCINE, QUADR. (FLUZONE; FLULAVAL; FLUARIX; AFLURIA QUADRIVALENT; 6MO+), 0.5 ML (IIV4)(Given 09/08/2019, 10/02/2018, 09/10/2016) * Influenza Nasal(Given 08/18/2012) * MARLON VACCINE QUAD LAIV4 PF NASAL(Given 08/18/2015, 09/06/2014) * MENINGOCOCCAL CONJUGATE (MCV4P)(Given 07/02/2019, 05/05/2013) * MMR(Given 03/11/2007, 03/11/2003) * PNEUMOCOCCAL CONJ, PEDS(Given 03/11/2003, 2002, 2002, 2002) * POLIO IPV(Given 03/11/2007, 06/10/2003, 2002, 2002) * PPD(Given 03/11/2007, 03/11/2003) * TDAP (7yrs+)(Given 05/05/2013) * VARICELLA(Given 03/11/2007, 06/10/2003) Social History Tobacco Use Types Packs/Day Years [...] PM CDT Body Mass Index - - Procedures * MONONUCLEOSIS SCREEN(Performed 08/15/2021) Performed for Fever, unspecified fever cause * RETA-DUBON VIRUS PANEL (VCA IGG/IGM, EBNA)(Performed 08/15/2021) Performed for Fever, unspecified fever cause * BASIC METABOLIC PANEL (CALCIUM TOTAL)(Performed 08/15/2021) Performed for Fever, unspecified fever cause * CBC W AUTO DIFFERENTIAL(Performed 08/15/2021) Performed for Fever, unspecified fever cause * SARS-COV-2 (COVID-19)+INFLU A+B AG (AMB) POC(Performed 08/15/2021) Performed for Fever, unspecified fever cause * STREP A SCREEN - POINT OF CARE (AMB) STL(Performed 08/15/2021) Performed for Fever, unspecified fever cause * CULTURE RESPIRATORY UPPER(Performed 08/15/2021) Performed for Fever, unspecified fever cause * IMAGING/RADIOLOGY/XRAY RESULTS ORDER(Performed 05/02/2021) * CHLAMYDIA + GC AMPLIFIED PROBE(Performed 04/10/2021) Performed for Screen for STD (sexually transmitted disease) * SYPHILIS ANTIBODY CASCADING REFLEX(Performed 04/05/2021) Performed for Screen for STD (sexually transmitted disease) * LIPID PROFILE(Performed 04/05/2021) Performed for High triglycerides * HIV-1 HIV-2 ANTIBODY + HIV P24 AG PANEL(Performed 04/05/2021) Performed for Screen for STD (sexually transmitted disease) * REF LAB-REQUEST PROBLEM(Performed 04/05/2021) Performed for Screen for STD (sexually transmitted disease) * CHLAMYDIA + GC AMPLIFIED PROBE(Performed 04/05/2021) Performed for Screen for STD (sexually transmitted disease) * CULTURE AEROBIC(Performed 10/25/2020) Performed for Sore throat * STREP A SCREEN - POINT OF CARE (AMB) STL(Performed 10/25/2020) Performed for Sore throat * COVID-19 SARS-COV-2 PCR QUAL ([facility])(Performed 10/25/2020) Performed for Sore throat * INFLUENZA A+B - POINT OF CARE (AMB)(Performed 01/14/2020) Performed for Dizziness * LIPID PROFILE+GLUCOSE - POINT OF CARE (AMB)(Performed 07/02/2019) Performed for Screening for cholesterol level * CULTURE RESPIRATORY UPPER(Performed 01/16/2019) * STREP A SCREEN - POINT OF CARE (AMB) STL(Performed 01/16/2019) Performed for Sore throat * INFLUENZA A+B - POINT OF CARE (AMB)(Performed 01/16/2019) Performed for Cough * CULTURE RESPIRATORY UPPER(Performed 10/02/2018) * STREP A SCREEN - POINT OF CARE (AMB) STL(Performed 10/02/2018) Performed for History of strep pharyngitis * CULTURE AEROBIC(Performed 09/08/2018) Performed for Strep throat * STREP A SCREEN - POINT OF CARE (AMB) STL(Performed 09/08/2018) Performed for Strep throat * STREP A SCREEN - POINT OF CARE (AMB)(Performed 07/22/2018) Performed for Strep pharyngitis * STREP A SCREEN - POINT OF CARE (AMB)(Performed 01/16/2018) Performed for Strep throat * STREP A SCREEN - POINT OF CARE (AMB)(Performed 04/16/2017) Performed for Strep pharyngitis * CULTURE AEROBIC(Performed 03/15/2017) Performed for Ear drainage, left * CULTURE FUNGUS OTHER(Performed 03/15/2017) Performed for Ear drainage, left * GLUCOSE(Performed 04/27/2016) Performed for BMI (body mass index), pediatric, 95-99% for age * LIPID PROFILE(Performed 04/27/2016) Performed for BMI (body mass index), pediatric, 95-99% for age * XR SHOULDER RIGHT 2VW OR MORE(Performed 04/08/2015) * XR FACIAL BONES 3VW OR MORE(Performed 04/08/2015) * STREP A SCREEN - POINT OF CARE (AMB)(Performed 02/20/2012) Performed for Acute pharyngitis * CULTURE STREP GROUP A(Performed 02/20/2012) Performed for Acute pharyngitis * CELIAC DISEASE REFLEXIVE CASCADE(Performed 11/16/2011) Performed for Abdominal pain, unspecified site * C-REACTIVE PROTEIN(Performed 11/09/2011) Performed for Abdominal pain, unspecified site * COMPREHENSIVE METABOLIC PANEL(Performed 11/09/2011) Performed for Abdominal pain, unspecified site * CBC W AUTO DIFFERENTIAL(Performed 11/09/2011) Performed for Abdominal pain, unspecified site * XR ABDOMEN KUB(Performed 10/26/2011) Performed for Abdominal pain, unspecified site * CULTURE AEROBIC+GRAM STAIN(Performed 02/15/2010) Performed for Acute Pharyngitis * STREP A SCREEN - POINT OF CARE (AMB)(Performed 02/15/2010) Performed for Acute Pharyngitis Results * (ABNORMAL) RETA-DUBON VIRUS PANEL (VCA IGG/IGM, EBNA) (08/15/2021 3:07 PM CDT) Reta-Dubon Virus Antibody To Viral Capsid Antigen IgM >160.00(H ) U/mL [facility] Comment: U/mL Interpretation ---- <36.00 Negative 36.00-43.99 Equivocal >43.99 Positive Reta-Dubon Virus Antibody To Viral Capsid Antigen IgG 383.00(H) U/mL [facility] Comment: U/mL Interpretation ---- <18.00 Negative 18.00-21.99 Equivocal >21.99 Positive Reta-Dubon Nuclear Antibody IgG Nuclear Antigen IV <18.00 U/mL [facility] Comment: U/mL Interpretation ---- <18.00 Negative 18.00-21.99 Equivocal >21.99 Positive Interpretation [facility] Comment: Suggestive of a current Reta-Dubon virus infection. Test Performed at: [facility] [id number] [facility] [place] [address] SENTHIL SALDIVAR DO,MPH Blood BLOOD SPECIMEN / Unknown 08/15/2021 3:07 PM CDT 08/15/2021 3:09 PM CDT Che Nolan MD LAB - CHEMISTRY KOLBY GREGORY Performing Organization Address [facility] Co de Phone Number [facility] [address] [place] [address] * (ABNORMAL) MONONUCLEOSIS SCREEN (08/15/2021 3:07 PM CDT) [facility] [employer] [place] Screen POSITIVE( A) NEGATIVE [facility] Comment: Test Performed at: [facility] [id number] [address] [employer] [facility] [place] [address] SENTHIL SALDIVAR DO,MPH Blood BLOOD SPECIMEN / Unknown 08/15/2021 3:07 PM CDT 08/15/2021 3:09 PM CDT Che Nolan MD LAB - CHEMISTRY KOLBY GREGORY Performing Organization Address [facility] [place] [address] * (ABNORMAL) CBC WITH DIFFERENTIAL (08/15/2021 3:07 PM CDT) Only the most recent of2 resultswithin the time period is included. [facility] White Blood Cell Count 14.8(H) 3.8 - 10.8 Thousand/u L [facility] RBC 6.21(H) 4.20 - 5.80 Million/uL [facility] Hemoglobin 16.6 13.2 - 17.1 g/dL [facility] Hematocrit 49.5 38.5 - 50.0 % [facility] MCV 79.7(L) 80.0 - 100.0 fL [facility] MCH 26.7(L) 27.0 - 33.0 pg [facility] MCHC 33.5 32.0 - 36.0 g/dL [facility] RDW 13.6 11.0 - 15.0 % [facility] Platelet Count 154 140 - 400 Thousand/u L [facility] MPV 11.8 7.5 - 12.5 fL [facility] Neutrophil Absolute 5328 1500 - 7800 cells/uL [facility] Absolute Bands 296 0 - 750 cells/uL [facility] Lymphocytes Absolute 7696(H) 850 - 3900 cells/uL [facility] Absolute Monocytes 1332(H) 200 - 950 cells/uL [facility] Eosinophils Absolute 0(L) 15 - 500 cells/uL [facility] Basophils Absolute 148 0 - 200 cells/uL [facility] Granulocytes % 36 % [facility] Band Neutrophil 2 % [facility] Lymphocytes % 52 % [facility] Monocytes % 9 % [facility] Eosinophils % 0 % [facility] Basophils % 1 % [facility] Comments [facility] Comment: Moderate Reactive Lymphocytes Noted (11-30 per 100 WBC) Test Performed at: [place] [address] SENTHIL SALDIVAR DO,MPH Blood BLOOD SPECIMEN / Unknown 08/15/2021 3:07 PM CDT 08/15/2021 3:09 PM CDT Che Nolan MD LAB - HEMATOLOGY ORD ERABLES [facility] [address] [place] [address] * (ABNORMAL) BASIC METABOLIC PANEL (BMP) (08/15/2021 3:07 PM CDT) Glucose 107(H) 65 - 99 mg/dL [facility] Comment: Fasting reference interval For someone without known diabetes, a glucose value between 100 and 125 mg/dL is consistent with prediabetes and should be confirmed with a follow-up test. BUN 7 7 - 20 mg/dL [facility] Creatinine 0.94 0.60 - 1.26 mg/dL [facility] eGFR by MDRD 117 > OR = 60 mL/min/1. 73m2 [facility] eGFR by MDRD 136 > OR = 60 mL/min/1. 73m2 [facility] BUN/Creatinine Ratio NOT APPLICABLE 6 - 22 (calc) [facility] Sodium 134(L) 135 - 146 mmol/L [facility] Potassium 3.6(L) 3.8 - 5.1 mmol/L [facility] Chloride 95(L) 98 - 110 mmol/L [facility] CO2 27 20 - 32 mmol/L [facility] Calcium 9.4 8.9 - 10.4 mg/dL [facility] Comment: Test Performed at: [place] [address] SENTHIL SALDIVAR DO,MPH Blood BLOOD SPECIMEN / Unknown 08/15/2021 3:07 PM CDT 08/15/2021 3:09 PM CDT Che Nolan MD LAB - CHEMISTRY KOLBY GREGORY [facility] [address] [place] [address] * SARS-COV-2 (COVID-19)+INFLU A+B AG (AMB) POC (08/15/2021 12:14 PM CDT) Influenza A Antigen Rapid Negative Negative [facility] Influenza B Antigen Rapid Negative Negative [facility] SARS-CoV-2 Ag Negative Negative [facility] COVID Internal Control Acceptable Acceptable [facility] Lot # [id number] [facility] Expiration Date 09/26/22 [facility] Instrument Serial Number [id number] [facility] Microbiology SPECIMEN FROM NASAL FOSSAE / Unknown 08/15/2021 12:14 PM CDT Narrative [facility] - 08/15/2021 12:15 PM CDT SARS-CoV-2 antigen testing is authorized for use with nasal (Veritor, BinaxNOW, or Meryl) or nasopharyngeal (Meryl) swabs collected from individuals who are suspected of COVID-19 infection by their healthcare provider within the first five days of onset of symptoms. False-positive SARS-CoV-2 test results are more likely to occur when disease prevalence is low (less than 1%). False-negative SARS-CoV-2 test results are more likely to occur when disease prevalence is high (greater than 10%). This test has been authorized by the Food and Drug administration (FDA)under an Emergency Use Authorization (EUA). This test is only authorized for the duration of time the declaration that circumstances exist justifying the authorization of emergency use of in vitro diagnostic tests for detection of SARS-CoV-2 virus and/or diagnosis of COVID-19 infection under section 564(b)(1) of the Act, 21 U.S.C 360bbb-3 (b)(1), unless the authorization is terminated or revoked sooner. Fact Sheets for this EUA assay are available upon request. Negative results should be treated as presumptive and confirmation with a molecular assay, if necessary, for patient management, may be performed. Negative results do not rule out COVID-19 and should not be used as the sole basis for treatment or patient management decisions, including infection control decisions. Negative results should be considered in the context of a patient's recent exposures, history and the presence of clinical signs and symptoms consistent with COVID-19. Che Nolan MD LAB - POINT OF CARE ORDERABLES Performing Organization Address City/[facility]/ZIP Co de Phone Number [facility] [address] [phone] * CULTURE RESPIRATORY UPPER (08/15/2021 12:13 PM CDT) Only the most recent of3 resultswithin the time period is included. [facility] Aminata Upper Respiratory Culture Final report [facility] INSURANCE BILL Result 1 [facility] INSURANCE BILL Comment:Routine respiratory yadiel Microbiology ENTIRE THROAT (SURFACE REGION OF NECK) / Unknown 08/15/2021 12:13 PM CDT 08/15/2021 Narrative Resulting Agency Comment Lab Testing performed at: [facility] [address] [phone] Che Nolan MD LAB - MICROBIOLOGY O RDERABLES Performing Organization Address City/[facility]/ZIP Co de Phone Number [facility] INSURANCE BILL [address] [place] [address] * STREP A SCREEN - POINT OF CARE (AMB) STL (08/15/2021 12:13 PM CDT) Only the most recent of5 resultswithin the time period is included. Kelly Coates Strep A Rapid POCT Negative Negative [facility] Strep A Internal Control Present [facility] Lot # [id number] [facility] Expiration Date [facility] Throat ENTIRE THROAT (SURFACE REGION OF NECK) / Unknown 08/15/2021 12:13 PM CDT Che Nolan MD LAB - POINT OF CARE ORDERABLES Performing Organization Address City/[facility]/ZIP Co de Phone Number [facility] [address] [place] [address], [facility] [phone] * IMAGING RADIOLOGY XRAY RESULTS ORDER (05/02/2021) Anatomical Region Laterality Modality Other Scanned Document IMAGING * CHLAMYDIA + GC AMPLIFIED PROBE (04/10/2021 4:28 PM CDT) Only the most recent of2 resultswithin the time period is included. Chlamydia SHARIF Urine Negative Negative [facility] INSURANCE BILL GC SHARIF Urine Negative Negative [facility] INSURANCE BILL Microbiology URINE / Unknown 04/10/2021 4 :28 PM CDT 04/10/2021 Narrative Resulting Agency Comment Lab Testing performed at: [facility] [id number] Evans Mann DO LAB - MICROBIOL OGY ORDERABLES [facility] INSURANCE BILL [address] [place] [address] * SYPHILIS ANTIBODY CASCADING REFLEX (04/05/2021 9:59 AM CDT) Treponema pallidum Antibody EIA Negative Negative [facility] Comment: No antibodies to T. pallidum (the agent causing syphilis) were detected in the specimen. This result, however, does not exclude very recent T. pallidum infection; testing of a second specimen, collected 2-4 weeks after this specimen, is recommended if the index of suspicion for recent infection is high. REPORT COMMENT: FASTING:NO Test Performed at: [facility] [id number] [place] [address] STEPHANIE JAMESON MD,PHD 04/05/2021 9:59 AM CDT 04/05/2021 10:01 AM CDT Che Nolan MD LAB - SEROLOGY ORDER BOONE Performing Organization Address [facility] Co de Phone Number [facility] [address] [place] [address] * HIV-1 HIV-2 ANTIBODY + HIV P24 AG PANEL (04/05/2021 9:59 AM CDT) [facility] HIV Screen 4th Generation w Reflex NON-REACT [...] purpose. For additional information please refer to http://education.[employer]/faq/HIP012 (This link is being provided for informational/ educational purposes only.) The performance of this assay has not been clinically validated in patients less than 2 years old. Test Performed at: [facility] [address] [place] [address] SENTHIL SALDIVAR DO,MPH Blood BLOOD SPECIMEN / Unknown 04/05/2021 9:59 AM CDT 04/05/2021 10:01 AM CDT Che Nolan MD LAB - CHEMISTRY ORDE BRI Performing Organization Address [facility] Co de Phone Number [facility] [address] [place] [address] * (ABNORMAL) LIPID PROFILE (LIPID PANEL) (04/05/2021 9:59 AM CDT) Only the most recent of2 resultswithin the time period is included. [facility] Cholesterol 184(H) <170 mg/dL [facility] HDL Cholesterol 45(L) >45 mg/dL [facility] Triglycerides 132(H) <90 mg/dL [facility] LDL Calculated 114(H) <110 mg/dL (calc) [facility] Comment: LDL-C is now calculated using the Bob-Bennett calculation, which is a validated novel method providing better accuracy than the Friedewald equation in the estimation of LDL-C. Bob PEÑA et al. SAGAR. 2013;310(19): 4755-9093 (http://education.C-Note/faq/TNT915) CHOL/HDLC RATIO 4.1 <5.0 (calc) [facility] Non HDL Cholesterol 139(H) <120 mg/dL (calc) [facility] Comment: For patients with diabetes plus 1 major ASCVD risk factor, treating to a non-HDL-C goal of <100 mg/dL (LDL-C of <70 mg/dL) is considered a therapeutic option. Test Performed at: [facility] [address] [place] [address] SENTHIL SALDIVAR DO,MPH Blood BLOOD SPECIMEN / Unknown 04/05/2021 9:59 AM CDT 04/05/2021 10:01 AM CDT Che Nolan MD LAB - CHEMISTRY KOLBY GREGORY Performing Organization Address City/[facility]/ZIP Co de Phone Number [facility] [address] [place] [address] * REF LAB-REQUEST PROBLEM (04/05/2021 9:47 AM CDT) Request Problem NOT NEEDED [facility] INSURANCE BILL Comment: Test not performed. No [employer] transport received. TEST: [id number] Chlamydia/GC Amplification SPECIMEN RECEIVED: [employer] TRANSPORT TUBE Ancillary determined the test is not needed. 04/05/2021 9:47 AM CDT 04/05/2021 Narrative Resulting Agency Comment Lab Testing performed at: [facility] [place] [address] [id number] Che Nolan MD LAB - CHEMISTRY KOLBY GREGORY [facility] INSURANCE BILL [address] [place] [address] * CULTURE AEROBIC (10/25/2020 4:49 PM LUNCH TRUCK OPERATOR) Only the most recent of3 resultswithin the time period is included. Aerobic Bacterial Culture Final report [facility] INSURANCE BILL Result 1 [facility] INSURANCE BILL Comment:Routine respiratory yadiel Microbiology SPECIMEN FROM TONSIL / Unknown 10/25/2020 4:49 PM LUNCH TRUCK OPERATOR 10/25/2020 Narrative Resulting Agency Comment Lab Testing performed at: [facility] [address] [phone] Evans Mann DO LAB - MICROBIOL OGY ORDERABLES [facility] INSURANCE BILL [address] [place] [address] * COVID-19 SARS-COV-2 PCR QUAL ([facility]) (10/25/2020 4:48 PM LUNCH TRUCK OPERATOR) SARS-CoV-2 SHARIF Not Detected Not Detected [facility] Comment: This nucleic acid amplification test was developed and its performance characteristics determined by [employer]. Nucleic acid amplification tests include PCR and TMA. This test has not been FDA cleared or approved. This test has been authorized by FDA under an Emergency Use Authorization (EUA). This test is only authorized for the duration of time the declaration that circumstances exist justifying the authorization of the emergency use of in vitro diagnostic tests for detection of SARS-CoV-2 virus and/or diagnosis of COVID-19 infection under section 564(b)(1) of the Act, 21 U.S.C. 360bbb-3(b) (1), unless the authorization is terminated or revoked sooner. When diagnostic testing is negative, the possibility of a false negative result should be considered in the context of a patient's recent exposures and the presence of clinical signs and symptoms consistent with COVID-19. An individual without symptoms of COVID-19 and who is not shedding SARS-CoV-2 virus would expect to have a negative (not detected) result in this assay. Microbiology SPECIMEN FROM NASOPHARYNGEAL STRUCTURE / Unknown 10/25/2020 4:48 PM LUNCH TRUCK OPERATOR 10/25/2020 Narrative Resulting Agency Comment Lab Testing performed at: [email or web address] [address] [facility] [id number] Evans Mann DO LAB - MICROBIOL OGY ORDERABLES [facility] INSURANCE BILL [address] [place] [address] * INFLUENZA A+B - POINT OF CARE (AMB) (01/14/2020 12:06 PM LUNCH TRUCK OPERATOR) Only the most recent of2 resultswithin the time period is included. Influenza A Antigen Rapid Negative Negative Influenza B Antigen Rapid Negative Negative Influenza Internal Control present NEGATIVE - POSITIVE Influenza Lot Number [id number] Influenza Expiration Date 10/21/20 Other SPECIMEN FROM NASOPHARYNGEAL STRUCTURE / Unknown 01/14/2020 12:06 PM LUNCH TRUCK OPERATOR Evans Mann DO LAB - POINT OF CARE ORDERABLES * (ABNORMAL) LIPID PROFILE+GLUCOSE - POINT OF CARE (AMB) (07/02/2019) Pathologist [facility] QC Verified Yes Yes Cholesterol POCT 177 200 mg/dl HDL POCT <15 mg/dL Triglycerides POCT 232(A) 130 mg/dL LDL 130 mg/dl Non HDL Cholesterol POCT 145 mg/dL Total Cholesterol/HDL Ratio POCT 6.0 Glucose 158(A) 70 - 126 mg/dL Blood BLOOD SPECIMEN / Unknown 07/02/2019 Che Nolan MD LAB - POINT OF CARE ORDERABLES * (ABNORMAL) STREP A SCREEN - POINT OF CARE (AMB) (07/22/2018) Only the most recent of5 resultswithin the time period is included. Pathologist [facility] Strep A Rapid POCT Positive(A) Negative Strep A Internal Control Present Other ENTIRE THROAT (SURFACE REGION OF NECK) / Unknown 07/22/2018 Evans Mann DO LAB - POINT OF CARE ORDERABLES * CULTURE FUNGUS OTHER (03/15/2017 1:14 PM CDT) Pathologist [facility] Fungus Culture Final report [facility] INSURANCE BILL Result 1 [facility] INSURANCE BILL Comment:No yeast or mold iso lated after 4 weeks. Microbiology EAR SWAB SPECIMEN / Unknown 03/15/2017 1:14 PM CDT 03/15/2017 Narrative Resulting Agency Comment [facility] [address] [phone] Evans Mann DO LAB - MICROBIOL OGY ORDERABLES [facility] INSURANCE BILL [address] [place] [address] * GLUCOSE (04/27/2016 11:12 AM CDT) Glucose 86 65 - 99 mg/dL [facility] Comment: Fasting reference interval REPORT COMMENT: FASTING:YES Test Performed at: [facility] [address] [address] [place] [address] SENTHIL SALDIVAR DO,MPH Blood specimen (specimen) BLOOD SPECIMEN / Unknown 04/27/2016 11:12 AM CDT 04/27/2016 11:13 AM CDT Che oNlan MD LAB - CHEMISTRY KOLBY GREGORY [facility] [address] [place] [address] * XR SHOULDER 2+ VW RIGHT (04/08/2015) Anatomical Region Laterality Modality Upper Extremity Other Che Nolan MD DIAGNOSTIC IMAGING O RDERABLES * XR FACIAL BONES 3+ VW (04/08/2015) Anatomical Region Laterality Modality Head Other Che Nolan MD DIAGNOSTIC IMAGING O RDERABLES * CULTURE STREP GROUP A (02/20/2012 10:55 AM CDT) Culture Strep A [facility] Comment: STREPTOCOCCUS, GROUP A CULTURE MICRO NUMBER: [id number] TEST STATUS: FINAL SPECIMEN SOURCE: THROAT SPECIMEN QUALITY: ADEQUATE RESULT: No beta hemolytic Streptococci isolated Test Performed at: [facility] [address] [place] [address] SENTHIL SALDIVAR DO Miscellaneous samples (specimen) ENTIRE THROAT (SURFACE REGION OF NECK) / Unknown 02/20/2012 10:55 AM CDT 02/21/2012 3:10 AM CDT Ivone Hewitt MD LAB - MICROBIOLOGY O RDERABLES Performing Organization Address City/[facility] Co de Phone Number [facility] [id number] [place] [address] * CELIAC DISEASE EVALUATION PANEL (11/16/2011) BLOOD SPECIMEN / Unknown Che Nolan MD LAB - SEROLOGY ORDER BOONE Performing Organization Address City/[facility] Co de Phone Number NONSSM RESULT SCAN * C-REACTIVE PROTEIN (CRP) (11/09/2011) Blood specimen (specimen) BLOOD SPECIMEN / Unknown Che Noaln MD LAB - CHEMISTRY ORDE RABDIAMANTE Performing Organization Address [facility] Co de Phone Number NONSSM RESULT SCAN * COMPREHENSIVE METABOLIC PANEL (11/09/2011) Blood specimen (specimen) BLOOD SPECIMEN / Unknown Che Nolan MD LAB - CHEMISTRY ORDE BRI Performing Organization Address [facility] de Phone Number NONSSM RESULT SCAN * KUB (10/26/2011) Anatomical Region Laterality Modality Abdomen Other Che Nolan MD DIAGNOSTIC IMAGING O RDERABLES * CULTURE ROUTINE (02/15/2010 11:32 AM CDT) Aerobic Bacterial Culture Final report [facility] INSURANCE BILL Result 1 [facility] INSURANCE BILL Comment:Routine respiratory yadiel ENTIRE PHARYNX / Unknown 02/15/2010 11:32 AM CDT 02/15/2010 8:31 PM CDT Narrative Resulting Agency Comment [facility] [address] [id number] Ivone Hewitt MD LAB - MICROBIOLOGY O RDERABLES Performing Organization Address City/[facility] Co de Phone Number [facility] INSURANCE BILL Care Teams Mash Filter Cloth Changer Relationship Specialty Start Date End Date Che Nolan MD PCP - General Pediatrics 10/25/11
--- NOTE | 2025-01-26 19:36 | ED_ITS ---
HPI - Fall General Chief Complaint: Fall Stated Complaint: fall Time Seen by Provider: 01/26/25 19:28 History of Present Illness HPI Narrative: 24-year-old male presents to the emergency department for fall that occurred today while at work. Patient was walking on the ground when he slipped the floor and fell through a 6 ft hole in the ground, landing on his right side. He did hit his head but did not lose consciousness. He is not anticoagulated. He is reporting pain to the left forehead agrees, left elbow with overlying abrasions, left wrist, the right knee, left ankle, midback, right the in the anterior superior ribs, left posterior chest wall. Last Tdap unknown. Related Data Home Medications ?Medication ?Instructions ?Recorded ?Confirmed ?Last Taken ?Type clonidine HCl 0.2 mg tablet 0.2 mg DAILY 06/26/20 06/26/20 Unknown History oxcarbazepine 600 mg tablet 600 mg BID 06/26/20 06/26/20 Unknown History sertraline 50 mg tablet 50 mg DAILY 06/26/20 06/26/20 Unknown History trazodone 100 mg tablet 100 mg DAILY 06/26/20 06/26/20 Unknown History Allergies Allergy/AdvReac Type Severity Reaction Status Date / Time No Known Allergies Allergy Verified 01/26/25 19:27 Review of Systems Review of Systems: All systems reviewed & are unremarkable except as noted in HPI and below PMFSH Past Medical History Medical History Concussion Anxiety Depression Surgical History Surgical History History of myringotomy History of tonsillectomy Family History Family History Father Unknown family medical history Mother Alive and well Social History Social History Smoking status: Current every day smoker Tobacco type: e-cigarettes/vaping Second hand tobacco smoke exposure: Yes Alcohol intake: current Substance use: current Substance use type: marijuana Living arrangements: with family Occupation/Education: occupation Gender identity (if verbalized by the patient): Male Sexual Orientation (if Verbalized by the Patient): Straight or Heterosexual Exam Narrative: GENERAL: Well-appearing, well-nourished, and in no acute distress. HEAD: Normocephalic, atraumatic. EYES: PERRLA and EOMI. ENT: Nares clear, no rhinorrhea or epistaxis. Mucous membranes moist. NECK: No midline cervical spinous tenderness, crepitus, step-offs or deformities BACK: Mild midline thoracic spinous tenderness and paraspinous tenderness with no crepitus, step-offs or deformities. No lumbar spinous tenderness CHEST: Clear to auscultation. No respiratory distress. Tenderness to the right anterior superior chest wall and left posterior chest wall no overlying skin changes, ecchymosis, crepitus or deformity HEART: Regular rate and rhythm. No murmur heard. Normal peripheral pulses. ABDOMEN: Soft, nontender, nondistended, normal active bowel sounds. No rebound, guarding or rigidity. No ecchymosis EXTREMITIES: LUE: Diffuse tenderness to the elbow and carpal bones with no deformity, ecchymosis, full ROM throughout, radial pulse 2+, sensation intact, radial, median and ulnar nerves are intact. Superficial abrasions over the left elbow. LLE: Tenderness to the lateral malleolus diffusely to left hip with no deformity or overlying skin changes, full active and passive range of motion, DP pulse 2 +, sensation intact. RLE: Diffuse tenderness to the right knee and right hip with no obvious deformity or skin changes, full active and passive range of motion, DP pulse 2 +, sensation intact. SKIN: Abrasions to the left elbow, no active bleeding, deep structures or foreign bodies visualized NEURO: No focal deficits. Alert and oriented x3 Course Vital Signs Vital signs: Vital Signs Temperature 97.8 F 01/26/25 18: Pulse Rate 101 H 01/26/25 18: Respiratory Rate 16 01/26/25 18: Blood Pressure 189/94 H 01/26/25 18: Pulse Oximetry 100 01/26/25 18: Oxygen Delivery Room Air 01/26/25 18: Temperature 97.8 F 01/26/25 18: Pulse Rate 101 H 01/26/25 18: Respiratory Rate 16 01/26/25 18: Blood Pressure 189/94 H 01/26/25 18:26 Pulse Oximetry 100 01/26/25 18:26 Oxygen Delivery Room Air 01/26/25 18:26 MDM - Fall MDM Narrative Medical decision making narrative: 24-year-old male presents to the emergency department for a fall that occurred at work earlier today. Patient had a mechanical fall but unfortunately did fall through 6 ft hole in the floor. He did hit his head but no LOC. He is not anticoagulated. Vitals with hypertension. Exam is significant for the above. Patient is neurovascularly intact. CT brain, CT diagnostic chest, x-rays of the left elbow, left wrist, left ankle, right knee and bilateral hip showed no acute traumatic findings. Patient updated on results. Tdap updated for his abrasions. He was given Tylenol. Ibuprofen and Flexeril sent to pharmacy. Discussed return precautions. He is agreeable to plan and verbalized understanding. Discharged in stable condition. Discharge Plan Discharge Clinical Impression: Closed head injury Qualifiers: Encounter type: initial encounter Qualified Code(s): S09.90XA - Unspecified injury of head, initial encounter Chest wall contusion Qualifiers: Encounter type: initial encounter Laterality: right Qualified Code(s): S20.211A - Contusion of right front wall of thorax, initial encounter Left ankle sprain Qualifiers: Encounter type: initial encounter Involved ligament of ankle: unspecified ligament Qualified Code(s): S93.402A - Sprain of unspecified ligament of left ankle, initial encounter Right knee sprain Qualifiers: Encounter type: initial encounter Involved ligament of knee: unspecified ligament Qualified Code(s): S83.91XA - Sprain of unspecified site of right knee, initial encounter Hip strain Qualifiers: Encounter type: initial encounter Laterality: left Qualified Code(s): S76.012A - Strain of muscle, fascia and tendon of left hip, initial encounter Patient Disposition: Home, Self-Care Condition: Stable Instructions: Antibiotic Form, Muscle Strain (ED), Head Injury (ED) Additional Instructions: Your evaluated in the emergency department after a fall. The imaging obtained today showed no acute findings. Please take ibuprofen, Tylenol and muscle relaxers as needed for pain. Primary care provider. Return to the emergency febrile vision changes, focal numbness or weakness, vomiting or other concerning symptoms. Patient Language: Ukrainian Prescriptions: New cyclobenzaprine 10 mg tablet 10 mg PO TID PRN (Reason: muscle spasm) Qty: 14 0RF ibuprofen 800 mg tablet 800 mg PO TID PRN (Reason: pain) Qty: 20 0RF No Action clonidine HCl 0.2 mg tablet 0.2 mg DAILY oxcarbazepine 600 mg tablet 600 mg BID sertraline 50 mg tablet 50 mg DAILY trazodone 100 mg tablet 100 mg DAILY promethazine 25 mg tablet 25 mg PO Q6H PRN (Reason: nausea and vomiting) Qty: 12 0RF fluticasone propionate [Flonase Allergy Relief] 50 mcg/actuation spray,suspension 1 spray intranasal BID Qty: 16 0RF Rx Instructions: administer into each nostril Follow-up/Referrals: PHYSICIAN,MARKETING REP [Primary Care Provider] - Eduar Watts MD [Physician] - Stand Alone Forms: Work/School Release IP
--- OUTSIDE RECORDS SUMMARY | 2025-01-26 19:42 | XMS_ITS | Referral Summary ---
Author Organization [facility] Address [address] [place] [address] Care Team Providers Care Stereotype Caster Name Role Phone Che Nolan MD Primary Care Provider [phone] Source Comments [facility],non-owned Affiliates and Associated Physician Practices is amultiple site organization consisting of ambulatory clinics and hospital sitesin [place], [place], [place] and [place]. This disclosure is being madepursuant to the Care Everywhere program and may not contain all information available regarding this patient. Last updated 18.[employer] Allergies No known active allergies Medications * [...] Where can I go for more information? [place] [employer] ( ) www.aap.org HealthyChildren.org www.healthychildren.org U.S. Department of Health and Human Services www.hhs.gov Website and free downloadable sharon for smartphones: http://www.Games2Win/ Use safety retraint in car Lifestyle On [...] HIV Screen 4th Generation w Reflex NON-REACT IPA NON-REACT PIA [employer] Comment: HIV-1 antigen and HIV-1/HIV-2 antibodies were [...] purpose. For additional information please refer to http://education.Lightwave Power.dreamsha.re/faq/HCT331 (This link is being provided for informational/ educational purposes only.) The performance of this assay has not been clinically validated in patients less than 2 years old. Test Performed at: [facility] [address] [place] [address] SENTHIL SALDIVAR DO,MPH Blood BLOOD SPECIMEN / Unknown 04/05/2021 9:59 AM CDT 04/05/2021 10:01 AM CDT Che Nolan MD LAB - CHEMISTRY [facility] [address] [place] [address] from Last 3 Months or Most Recently Relevant to Health Maintenance Care Teams Stereotype Caster Relationship Specialty Start Date End Date Che Nolan MD PCP - General Pediatrics 10/25/11
--- OUTSIDE RECORDS SUMMARY | 2025-01-26 19:42 | XMS_ITS | Patient Health Summary ---
Author Organization [facility] Address [address] [place] [address] Care Team Providers Care Melter Clerk Name Role Phone Che Nolan MD Primary Care Provider [phone] Note from [facility],non-owned Affiliates and Associated Physician Practices is amultiple site organization consisting of ambulatory clinics and hospital sitesin [place], [place], [place] and [place]. This disclosure is being madepursuant to the Care Everywhere program and may not contain all information available regarding this patient. Last updated 18.[facility] Allergies No known active allergies Medications * [...] current Reta-Dubon virus infection. Test Performed at: [facility] [place] [address] [facility] [place] [address] SENTHIL SALDIVAR DO,MPH Blood BLOOD SPECIMEN / Unknown 08/15/2021 3:07 PM CDT 08/15/2021 3:09 PM CDT Che Nolan MD LAB - CHEMISTRY KOLBY GREGORY Performing Organization Address [facility] Co de Phone Number [facility] [address] [place] [address] * (ABNORMAL) MONONUCLEOSIS SCREEN (08/15/2021 3:07 PM CDT) [facility] Heterophile Baxter Screen POSITIVE( A) NEGATIVE [facility] Comment: Test Performed at: [facility] [place] [address] [address] [employer] [facility] [place] [address] SENTHIL SALDIVAR DO,MPH Blood BLOOD SPECIMEN / Unknown 08/15/2021 3:07 PM CDT 08/15/2021 3:09 PM CDT Che Nolan MD LAB - CHEMISTRY KOLBY GREGORY Performing Organization Address [facility] [place] [address] * (ABNORMAL) CBC WITH DIFFERENTIAL (08/15/2021 3:07 PM CDT) Only the most recent of2 resultswithin the time period is included. [facility] White Blood Cell Count 14.8(H) 3.8 [...] (11-30 per 100 WBC) Test Performed at: [place] [address] SENTHIL SALDIVAR DO,MPH Blood BLOOD SPECIMEN / Unknown 08/15/2021 3:07 PM CDT 08/15/2021 3:09 PM CDT Che Nolan MD LAB - HEMATOLOGY ORD ERABLES [facility] [address] [place] [address] * (ABNORMAL) BASIC METABOLIC PANEL (BMP) (08/15/2021 [...] 10.4 mg/dL [facility] Comment: Test Performed at: [place] [address] SENTHIL SALDIVAR DO,MPH Blood BLOOD SPECIMEN / Unknown 08/15/2021 3:07 PM CDT 08/15/2021 3:09 PM CDT Che Nolan MD LAB - CHEMISTRY KOLBY GREGORY [facility] [address] [place] [address] * SARS-COV-2 (COVID-19)+INFLU A+B AG (AMB) POC (08/15/2021 12:14 PM CDT) Influenza A Antigen Rapid Negative Negative [facility] Influenza B Antigen Rapid Negative Negative [facility] SARS-CoV-2 Ag Negative Negative [facility] COVID Internal Control Acceptable Acceptable [facility] Lot # [id number] [facility] Expiration Date 09/26/22 [facility] Instrument Serial Number [id number] [facility] Microbiology SPECIMEN FROM NASAL FOSSAE / Unknown 08/15/2021 12:14 PM CDT N[facility]ative [facility] - 08/15/2021 12:15 PM CDT SARS-CoV-2 [...] POINT OF CARE ORDERABLES Performing Organization Address City/[facility]/ZIP Co de Phone Number [facility] [address] [phone] * CULTURE RESPIRATORY UPPER (08/15/2021 12:13 PM CDT) Only the most recent of3 resultswithin the time period is included. [facility] Aminata Upper Respiratory Culture Final report [facility] INSURANCE BILL Result 1 [facility] INSURANCE BILL Comment:Routine respiratory yadiel Microbiology ENTIRE THROAT (SURFACE REGION OF NECK) / Unknown 08/15/2021 12:13 PM CDT 08/15/2021 Narrative Resulting Agency Comment Lab Testing performed at: [facility] [address] [facility] [phone] Che Nolan MD LAB - MICROBIOLOGY O RDERABLES Performing Organization Address City/[facility]/ZIP Co de Phone Number [facility] INSURANCE BILL [address] [place] [address] * STREP A SCREEN - POINT OF CARE (AMB) STL (08/15/2021 12:13 PM CDT) Only the most recent of5 resultswithin the time period is included. Kelly Coates Strep A Rapid POCT Negative Negative [facility] Strep A Internal Control Present [facility] Lot # [id number] [facility] Throat ENTIRE THROAT (SURFACE REGION OF NECK) / Unknown 08/15/2021 12:13 PM CDT Che Nolan MD LAB - POINT OF CARE ORDERABLES Performing Organization Address City/[facility]/ZIP Co de Phone Number [facility] [address] [place] [address], [facility] [phone] * IMAGING RADIOLOGY XRAY RESULTS ORDER (05/02/2021) [...] Resulting Agency Comment Lab Testing performed at: [facility] [phone] Evans Mann DO LAB - MICROBIOL OGY ORDERABLES [facility] INSURANCE BILL [address] [place] [address] * SYPHILIS ANTIBODY CASCADING REFLEX (04/05/2021 9:59 [...] high. REPORT COMMENT: FASTING:NO Test Performed at: [facility] [id number] [place] [address] STEPHANIE JAMESON MD,PHD 04/05/2021 9:59 AM CDT 04/05/2021 10:01 AM CDT Che Nolan MD LAB - SEROLOGY ORDER BOONE Performing Organization Address [facility] Co de Phone Number [facility] [address] [place] [address] * HIV-1 HIV-2 ANTIBODY + HIV P24 AG PANEL (04/05/2021 9:59 AM CDT) [facility] HIV Screen 4th Generation w Reflex [...] purpose. For additional information please refer to http://education.LLamasoft/faq/NFK816 (This link is being provided for informational/ educational purposes only.) The performance of this assay has not been clinically validated in patients less than 2 years old. Test Performed at: [facility] [place] [address] [place] [address] SENTHIL SALDIVAR DO,MPH Blood BLOOD SPECIMEN / Unknown 04/05/2021 9:59 AM CDT 04/05/2021 10:01 AM CDT Che Nolan MD LAB - CHEMISTRY ORDE BRI Performing Organization Address [facility] Co de Phone Number [facility] [address] [place] [address] * (ABNORMAL) LIPID PROFILE (LIPID PANEL) (04/05/2021 9:59 AM CDT) Only the most recent of2 resultswithin the time period is included. [facility] Cholesterol 184(H) <170 mg/dL [facility] HDL Cholesterol 45(L) >45 mg/dL [facility] Triglycerides 132(H) <90 mg/dL [facility] LDL Calculated 114(H) <110 mg/dL (calc) [facility] Comment: LDL-C is now calculated using the Bob-Bennett calculation, which is a validated novel method providing better accuracy than the Friedewald equation in the estimation of LDL-C. Bob PEÑA et al. SAGAR. 2013;310(19): 0317-5466 (http://education.Mammotome/faq/FNJ511) CHOL/HDLC RATIO 4.1 <5.0 (calc) [facility] Non HDL Cholesterol 139(H) <120 mg/dL (calc) [facility] Comment: For patients with diabetes plus 1 major ASCVD risk factor, treating to a non-HDL-C goal of <100 mg/dL (LDL-C of <70 mg/dL) is considered a therapeutic option. Test Performed at: [facility] [place] [address] [place] [address] SENTHIL SALDIVAR DO,MPH Blood BLOOD SPECIMEN / Unknown 04/05/2021 9:59 AM CDT 04/05/2021 10:01 AM CDT Che Nolan MD LAB - CHEMISTRY KOLBY GREGORY Performing Organization Address City/[facility]/ZIP Co de Phone Number [facility] [address] [place] [address] * REF LAB-REQUEST PROBLEM (04/05/2021 9:47 AM CDT) Request Problem NOT NEEDED [facility] INSURANCE BILL Comment: Test not performed. No [employer]pt[employer] transport received. TEST: [id number] Chlamydia/GC Amplification SPECIMEN RECEIVED: [employer]OGEN[facility] TRANSPORT TUBE Ancillary determined the test is not needed. 04/05/2021 9:47 AM CDT 04/05/2021 Narrative Resulting Agency Comment Lab Testing performed at: [facility] [place] [address] [facility] [phone] Che Nolan MD LAB - CHEMISTRY KOLBY GREGORY [facility] INSURANCE BILL [address] [place] [address] * CULTURE AEROBIC (10/25/2020 4:49 PM FLOATLIGHT LOADING SUPERVISOR) Only the most recent of3 resultswithin the time period is included. Aerobic Bacterial Culture Final report [facility] INSURANCE BILL Result 1 [facility] INSURANCE BILL Comment:Routine respiratory yadiel Microbiology SPECIMEN FROM TONSIL / Unknown 10/25/2020 4:49 PM FLOATLIGHT LOADING SUPERVISOR 10/25/2020 Narrative Resulting Agency Comment Lab Testing performed at: [facility] [address] [facility] [phone] Evans Mann DO LAB - MICROBIOL OGY ORDERABLES [facility] INSURANCE BILL [address] [place] [address] * COVID-19 SARS-COV-2 PCR QUAL ([facility] (10/25/2020 4:48 PM FLOATLIGHT LOADING SUPERVISOR) SARS-CoV-2 SHARIF Not Detected Not Detected [facility] INS[facility] B[facility] Comment: This nucleic acid amplification test was developed and its performance characteristics determined by [employer]. Nucleic acid amplification tests include PCR and [...] NASOPHARYNGEAL STRUCTURE / Unknown 10/25/2020 4:48 PM FLOATLIGHT LOADING SUPERVISOR 10/25/2020 Narrative Resulting Agency Comment Lab Testing performed at: [facility] [address] [facility] [phone] Evans Mann DO LAB - MICROBIOL OGY ORDERABLES [facility] INSURANCE BILL [address] [place] [address] * INFLUENZA A+B - POINT OF CARE (AMB) (01/14/2020 12:06 PM FLOATLIGHT LOADING SUPERVISOR) Only the most recent of2 resultswithin the time period is included. Influenza A Antigen Rapid Negative Negative Influenza B Antigen Rapid Negative Negative Influenza Internal Control present NEGATIVE - POSITIVE Influenza Lot Number [id number] Influenza Expiration Date 10/21/20 Other SPECIMEN FROM NASOPHARYNGEAL STRUCTURE / Unknown 01/14/2020 12:06 PM FLOATLIGHT LOADING SUPERVISOR Evans Mann DO LAB - POINT OF CARE ORDERABLES * (ABNORMAL) LIPID PROFILE+GLUCOSE - POINT OF CARE (AMB) (07/02/2019) Pathologist [facility] QC Verified Yes Yes Cholesterol POCT 177 [...] resultswithin the time period is included. Pathologist [facility] Strep A Rapid POCT Positive(A) Negative Strep A Internal Control Present Other ENTIRE THROAT (SURFACE REGION OF NECK) / Unknown 07/22/2018 Evans Mann DO LAB - POINT OF CARE ORDERABLES * CULTURE FUNGUS OTHER (03/15/2017 1:14 PM CDT) Pathologist [facility] Fungus Culture Final report [facility] INSURANCE BILL Result 1 [facility] INSURANCE BILL Comment:No yeast or mold iso lated after 4 weeks. Microbiology EAR SWAB SPECIMEN / Unknown 03/15/2017 1:14 PM CDT 03/15/2017 Narrative Resulting Agency Comment [facility] [address] [facility] [phone] Evans Mann DO LAB - MICROBIOL OGY ORDERABLES [facility] INSURANCE BILL [address] [place] [address] * GLUCOSE (04/27/2016 11:12 AM CDT) Glucose 86 65 - 99 mg/dL [facility] Comment: Fasting reference interval REPORT COMMENT: FASTING:YES Test Performed at: [facility] [place] [address] [place] [address] SENTHIL SALDIVAR DO,MPH Blood specimen (specimen) BLOOD SPECIMEN / Unknown 04/27/2016 11:12 AM CDT 04/27/2016 11:13 AM CDT Che Nolan MD LAB - CHEMISTRY KOLBY GREGORY [facility] [address] [place] [address] * XR SHOULDER 2+ VW RIGHT (04/08/2015) Anatomical Region Laterality Modality Upper Extremity Other Che Nolan MD DIAGNOSTIC IMAGING O RDERABLES * XR FACIAL BONES 3+ VW (04/08/2015) Anatomical Region Laterality Modality Head Other Che Nolan MD DIAGNOSTIC IMAGING O RDERABLES * CULTURE STREP GROUP A (02/20/2012 10:55 AM CDT) Culture Strep A [facility] Comment: STREPTOCOCCUS, GROUP A CULTURE MICRO NUMBER: [id number] TEST STATUS: FINAL SPECIMEN SOURCE: THROAT SPECIMEN QUALITY: ADEQUATE RESULT: No beta hemolytic Streptococci isolated Test Performed at: [facility] [address] [place] [address] SENTHIL SALDIVAR DO Miscellaneous samples (specimen) ENTIRE THROAT (SURFACE REGION OF NECK) / Unknown 02/20/2012 10:55 AM CDT 02/21/2012 3:10 AM CDT Ivone Hewitt MD LAB - MICROBIOLOGY O RDERABLES Performing Organization Address City/[facility] Co de Phone Number [facility] [address] [place] [address] * CELIAC DISEASE EVALUATION PANEL (11/16/2011) BLOOD SPECIMEN / Unknown Che Nolan MD LAB - SEROLOGY ORDER BOONE Performing Organization Address City/[facility] Co de Phone Number NON[facility] RESULT SCAN * C-REACTIVE PROTEIN (CRP) (11/09/2011) Blood specimen (specimen) BLOOD SPECIMEN / Unknown Che Nolan MD LAB - CHEMISTRY ORDE RABDIAMANTE Performing Organization Address [facility] Co de Phone Number NON[facility]M RESULT SCAN * COMPREHENSIVE METABOLIC PANEL (11/09/2011) Blood specimen (specimen) BLOOD SPECIMEN / Unknown Che Nolan MD LAB - CHEMISTRY ORDE BRI Performing Organization Address [facility] de Phone Number NONSSM RESULT SCAN * KUB (10/26/2011) Anatomical Region Laterality Modality Abdomen Other Che Nolan MD DIAGNOSTIC IMAGING O RDERABLES * CULTURE ROUTINE (02/15/2010 11:32 AM CDT) Aerobic Bacterial Culture Final report [facility] INSURANCE BILL Result 1 [facility] INSURANCE BILL Comment:Routine respiratory yadiel ENTIRE PHARYNX / Unknown 02/15/2010 11:32 AM CDT 02/15/2010 8:31 PM CDT Narrative Resulting Agency Comment [facility] [address] [phone] Ivone Hewitt MD LAB - MICROBIOLOGY O RDERABLES Performing Organization Address City/[facility] Co de Phone Number [facility] INSURANCE BILL Care Teams Melter Clerk Relationship Specialty Start Date End Date Che Nolan MD PCP - General Pediatrics 10/25/11
--- OUTSIDE RECORDS SUMMARY | 2025-01-26 19:42 | XMS_ITS | Clinical Summary ---
Author Organization [employer] [facility] Address [address] [place] [address] Care Team Providers Care Saturator Name Role Phone Che Nolan MD Primary Care Provider [phone] Source Comments [facility],non-owned Affiliates and Associated Physician Practices is amultiple site organization consisting of ambulatory clinics and hospital sitesin [place], [place], [place] and [place]. This disclosure is being madepursuant to the Care Everywhere program and may not contain all information available regarding this patient. Last updated 18.[facility] Allergies No known active allergies Medications * [...] Where can I go for more information? [place] [employer] ( ) www.aap.org HealthyChildren.org www.healthychildren.org U.S. Department of Health and Human Services www.hhs.gov Website and free downloadable sharon for smartphones: http://www.[employer]/ Use safety retraint in car Lifestyle On [...] AG PANEL (04/05/2021 9:59 AM CDT) Pathologist [facility] HIV Screen 4th Generation w Reflex NON-REACT [...] purpose. For additional information please refer to http://education.Sympoz/faq/VRT447 (This link is being provided for informational/ educational purposes only.) The performance of this assay has not been clinically validated in patients less than 2 years old. Test Performed at: [facility] [address] [place] [address] SENTHIL SALDIVAR DO,MPH Blood BLOOD SPECIMEN / Unknown 04/05/2021 9:59 AM CDT 04/05/2021 10:01 AM CDT Che Nolan MD LAB - CHEMISTRY KOLBY [facility] Organization Address City/State/ZIP Co tx Phone Number [facility] [address] [place] [address] from Last 3 Months or Most Recently Relevant to Health Maintenance Care Teams Saturator Relationship Specialty Start Date End Date Che Nolan MD PCP - General Pediatrics 10/25/11
[2025-01-26] MEDS: TETANUS,DIPHTHERIA,AC PERTUSSIS ADULT (0.5 ML) BOOSTRIX IM (20:44)
[2025-01-26] MEDS: ACETAMINOPHEN 500 MG TABLET 1000 MG PO (20:44)
== END 2025-01-26 20:47 | disposition home or self-care (01) ==
PROVIDERS: Emergency Provider Physician Assistant
DX: S09.90XA Unspecified injury of head, initial encounter (principal); S20.211A Contusion of right front wall of thorax, initial encounter; S93.402A Sprain of unspecified ligament of left ankle, initial encounter; S83.91XA Sprain of unspecified site of right knee, initial encounter; S76.012A Strain of muscle, fascia and tendon of left hip, initial encounter; Z23 Encounter for immunization; W17.2XXA Fall into hole, initial encounter
CPT/HCPCS: 70450; 71250; 73080; 73110; 73521; 73564; 73610; 90471; 90715; 99284; A9270